=== PATIENT | female | born 1960 | race Caucasian/White ===

== ENCOUNTER 2020-07-27 18:25 | Emergency (ER) | payer OTHER, SELFPAY ==
[2020-07-27 18:27] VITALS: BP 135/92; PULSE 85; RESP 14; TEMP 35.6; O2SAT 100; BMI 33.0
--- NOTE | 2020-07-27 19:58 | EKG12_ITS ---
Test Reason : ABDOMINAL PAIN Blood Pressure : / mmHG Vent. Rate : 091 BPM Atrial Rate : 091 BPM P-R Int : 168 ms QRS Dur : 082 ms QT Int : 366 ms P-R-T Axes : 033 004 023 degrees QTc Int : 450 ms Normal sinus rhythm Normal ECG Confirmed by ANDREW DUBON, JAMES ([id number]), web content editor ONDINA GAMBINO ([id number]) on 07/30/2020 11:11:45 A M Referred By: SANDHYA Confirmed By:LINETTE MORALES MD
--- NOTE | 2020-07-27 19:58 | CT_ITS ---
STUDY: CT ABDOMEN AND PELVIS WITHOUT CONTRAST REASON FOR EXAM: Female, 60 years old. abd pain RADIATION DOSAGE (If Supplied By Facility): CTDIvol = ( 17.56 ) mGy, DLP = ( 978.44 ) mGycm TECHNIQUE: Transaxial images were obtained from the dome of the diaphragm to the symphysis pubis without oral contrast, and without intravenous contrast. Sagittal and coronal images were reconstructed. Individualized dose optimization techniques were used for this CT. COMPARISON: None. FINDINGS: The visualized lung bases are unremarkable. The visualized portions of the heart are within normal limits. Normal liver. Gallstones or sludge without gallbladder wall thickening or pericholecystic fluid. Normal spleen. Normal pancreas. Normal bilateral adrenal glands. Normal right kidney. Moderate left hydronephrosis and perinephric stranding. 2 x 3 mm stone at the ureteropelvic junction within the bladder. Sleeve gastrectomy. Normal small intestine. Normal colon. The appendix is visualized and appears normal. Normal abdominal aorta. Normal inferior vena cava. Normal retroperitoneum. Normal urinary bladder. Bilateral fat-containing inguinal hernias. Normal osseous structures. CT/Abdomen/Pelvis without Cont IMPRESSION: Moderate left hydronephrosis due to a 2 x 3 mm stone at the ureteropelvic junction in the bladder. Cholelithiasis. Electronically Signed: Elliott Mckeon MD at 21:05 EDT , Service support ,
--- NOTE | 2020-07-27 19:59 | ED.VIS.GI ---
HPI HPI - GI History of Present Illness Chief Complaint: Abd Pain Informant: patient Abdominal Pain/Flank Pain Onset: Today and Hours Context: Sudden Onset Timing: Continuous Quality: Cramping, Sharp and Stabbing Location: Diffuse Current Severity: Moderate Maximum Severity: Severe Nausea/Vomiting/Emesis GI Symptom: Positive for Nausea and Vomiting Onset: Today Quality: Positive for Nonbilious; Negative for Blood streaks, Coffee ground and Hematemesis Severity: Mild Diarrhea/Melena/Hematochezia GI Symptom: Negative for Diarrhea, Melena and Hematochezia Associated Symptoms Associated Symptoms: Negative for Dysuria and Frequency Narrative Narrative: 60-year-old female history of hysterectomy, C-sections and prior gastric sleeve. Said this morning she started having abdominal pain the left lower quadrant now is diffuse. Associated nausea and vomiting. No diarrhea no constipation. No melena no dysuria. No fever. Denies any abdominal trauma. States she is never had pain like this before. Denies any recent illness or hospitalization. Prior similar symptoms: No Recent Illness/Hospitalization: No PFSH PFSH Medical History (Updated 07/27/20 @ 21:[address] Tyron Moreira MD) Depression Hypothyroidism Kidney stone on left side Home Medications bupropion HCl [Wellbutrin XL] 300 mg PO DAILY 07/27/20 [History Last Taken Unknown] hydrocodone-acetaminophen 1 tab PO Q4H PRN 2 Days #10 tab 07/27/20 [Rx Last Taken Unknown] thyroid 1 tab PO.IVFORM DAILY 07/27/20 [History Last Taken Unknown] Allergy/AdvReac Type Severity Reaction Status Date / Time No Known Allergies Allergy Verified 07/27/20 18:26 Social History Smoking Status: Never smoker ROS ROS ED ROS Narrative Denies any recent illness before today. Review of Systems ROS Unobtainable: Denies due to encephalopathy Constitutional Constitutional ED: Denies chills or fever(s) ENT ENT ED: Denies ear pain or sore throat Cardiovascular Cardiovascular: Denies chest pain or palpitations Respiratory/Chest Respiratory/Chest: Denies cough or dyspnea Gastrointestinal Gastrointestinal: Reports abdominal pain, nausea and vomiting; Denies constipation, diarrhea or melena Genitourinary Genitourinary ED: Denies dysuria or hematuria Musculoskeletal Musculoskeletal: Denies myalgias Integumentary Denies rash Neurologic Neurologic: Denies headache(s) Psychiatric Psychiatric: Denies depression Endocrine Endocrinology: Denies polyuria Hematologic/Lymphatic Hematologic/Lymphatic: Denies easy bruising Allergic/Immunologic Allergic/Immunologic ED: Denies urticaria EXAM Physical Exam Narrative Exam Narrative: Middle-aged female crying in pain. Vital signs are stable afebrile. She does not look septic or toxic. She does not look dehydrated. HEENT exam unremarkable. Lungs are clear. Heart regular rhythm. Abdomen soft nontender nondistended normal bowel sounds no peritoneal signs. There is no reproducible abdominal pain. She states the pain is all over her entire abdomen. There is no signs of obstruction. Abdomen is soft with positive bowel sounds. There is no pulsatile mass. Moving all 4 extremities. No edema. Back nontender. Neurologically she is awake and alert. Const Vital Signs: 07/27/20 18:27 Temperature 96.1 F L Temperature Source Temporal Pulse Rate 85 Respiratory Rate 14 Blood Pressure 135/92 H Blood Pressure Mean 106 Pulse Ox 100 Oxygen Delivery Method Room Air Positive well nourished and well developed General Appearance ED: well developed HEENT normocephalic and atraumatic; Negative for trauma or tenderness Eyes PERRL and EOMs intact bilaterally Neck no lymphadenopathy, supple and no JVD General: Negative for tenderness Resp normal respiratory effort and clear to auscultation bilaterally Cardio regular rate, regular rhythm, S1 normal heart sound, S2 normal heart sound and no murmurs GI non-tender, non-distended and no masses Inspection: Negative for abdominal distention Auscultation: normoactive bowel sounds Palpation: soft; Negative for tender, guarding, rigid or rebound tenderness present Back/Spine no CVA tenderness Extremity full ROM General Extremety ED: Negative for edema or tenderness General Extremity: Negative for edema Neuro CN's II-XII intact bilaterally and moves all extremities Sensorium / Orientation: alert, oriented to person, oriented to place, oriented to time and orientation impaired Psych mental status grossly normal Skin Lesions: no lesions Rashes: no rashes MDM MDM MDM Narrative Medical decision making narrative: Patient with abdominal pain with a prior hysterectomy, C-sections of the gastric sleeve. On exam is not reproducible. She seems to be in severe pain however. CAT scan labs are being obtained. She will be treated with IV morphine and Zofran for nausea. IV fluids. Repeat exam at 8:39 PM patient looks like a new person. She is completely pain-free. Her abdomen is completely benign and there is no reproducible pain. Given her labs this may be secondary to a acute kidney stone. So I changed the CAT scan to flank study without contrast. Patient is currently resting comfortably and abdomen is benign. Left flank and abdominal pain secondary to acute ureteral calculi. Patient is pain-free. She will be discharged home with urine strainer and [place]. Strain urine. Return if worse. Follow-up with urology if needed. Lab Data Attestation: I reviewed the patient's lab results. Lab results narrative: CBC is elevated at 15.4. Hemoglobin 13. No bands. Electrolytes unremarkable gap of 8. Creatinine 1.37. Liver enzymes are normal. Lipase is 59. UA shows 25-50 red cells no white cells rare bacteria and no nitrates. There was [address] reveals a left UPJ 2 to 3 mm ureteral stone with hydronephrosis and hydroureter. This is consistent with patient's presentation and exam. Labs: Laboratory Results - last 24 hr 07/27/20 07/27/20 07/27/20 19:30 19:54 19:54 WBC 15.4 H RBC 4.61 Hgb 13.7 Hct 41.5 MCV 90.0 MCH 29.7 MCHC 33.0 RDW Std Deviation 39.5 RDW Coeff of [place] 11.9 Plt Count 242 MPV 9.3 Immature Gran % (Auto) 0.600 Neut % (Auto) 75.2 H Lymph % (Auto) 19.3 [place] % (Auto) 4.1 Eos % (Auto) 0.5 Baso % (Auto) 0.3 Absolute Neuts (auto) 11.6 H Absolute Lymphs (auto) 2.98 Nucleated RBC % 0 Sodium 136 Potassium 4.7 Chloride 103 Carbon Dioxide 25.0 Anion Gap 8 BUN 12 Creatinine 1.37 H Estim Creat Clear Calc 41.39 Est GFR (MDRD) Af Amer 51 L Est GFR (MDRD) Non-Af 42 L BUN/Creatinine Ratio 8.8 L Glucose 122 H Calcium 9.7 Total Bilirubin 0.80 AST 20 ALT 18 Alkaline Phosphatase 98 Total Protein 7.7 Albumin 4.1 Globulin 3.6 Albumin/Globulin Ratio 1.1 Lipase 59 L Urine Color Yellow Urine Clarity Clear Urine pH 8.0 Ur Specific [place] 1.010 Urine Protein Negative Urine Glucose (UA) Normal Urine Ketones 150 A* Urine Occult Blood 150 H Urine Nitrite Negative Urine Bilirubin Negative Urine Urobilinogen Normal Ur Leukocyte Esterase Negative Urine RBC 25-50 SEEN Urine WBC 0 SEEN Ur Squamous Epith Cells 0-5 SEEN Urine Bacteria RARE Urine Mucus 0 SEEN Radiography Diagnostic Testing: Radiology Impression Abdomen/Pelvis CT 07/27/20 19:58 IMPRESSION: Moderate left hydronephrosis due to a 2 x 3 mm stone at the ureteropelvic junction in the bladder. Cholelithiasis. Electronically Signed: Elliott Mckeon MD at 21:05 EDT , Service support , Discharge Plan Triage Chief Complaint: Abd Pain ED Provider: Tyron Moreira Dx/Rx/DC Orders Clinical Impression: Kidney stone on left side Instructions: ED Kidney Stone w/ Colic Prescriptions: New hydrocodone-acetaminophen 5-325 mg tablet 1 tab PO Q4H PRN (Reason: pain) 2 Days Qty: 10 RF: 0 No Action bupropion HCl [Wellbutrin XL] 300 mg Tablet Extended Release 24 Hr 300 mg PO DAILY RF: 0 thyroid 1 tab PO.IVFORM DAILY RF: 0 Referrals: NADYA VELASCO [Other] Asaf Beltrna MD [STAFF PHYSICIAN] - 3-5 Days if not improving Activity Restrictions/Additional Instructions: Motrin and Tylenol for pain. For more severe pain [place]. Plenty of fluids. Strain your urine for the past stone. You have a 2 to 3 mm stone that still by your bladder. Once he gets your bladder you feel much better. Disposition Disposition: Home, self care
[2020-07-27] MEDS: 0.9% Normal Saline 1,000 ML 1000 ML IV (20:09)
[2020-07-27] MEDS: Ondansetron 4 MG/2 ML Vial IV (20:09)
[2020-07-27] MEDS: morphine 8 MG/ML Syringe IV (20:10)
[2020-07-27 20:11] LABS: Mucous, Urine 0 SEEN /hpf (<or=2+); White Blood Cells 0 SEEN /hpf (0-5)
[2020-07-27 20:13] LABS: Absolute Lymphocyte Count 2.98 X10^3/uL (0.83-4.51); Absolute Neutrophil Count 11.6 X10^3/uL (2.0-7.7); Basophil# 0.05 X10^3/uL; Basophil% 0.3 % (0-1); Eosinophil# 0.08 X10^3/uL; Eosinophils% 0.5 % (0-5); Hematocrit 41.5 % (37-47); Hemoglobin 13.7 g/dL (12.0-15.0); Lymphocyte # 2.98 X10^3/ul (0.83-4.51); Lymphocyte % 19.3 % (19-41); Mean Corpuscular Hgb 29.7 pg (27.0-32.0); Mean Platelet Vol. 9.3 fl (6.2-12.0); Monocyte# 0.63 X10^3/uL; Monocyte% 4.1 % (0-10); NRBC Flagged by Analyzer 0 % (0-5); Neutrophil # 11.61 X10^3/uL (2.7-7.7); Neutrophil % 75.2 % (47-70); Platelet Count 242 K/mm3 (150-450); RBC Distribution Width CV 11.9 % (11.6-14.6); RBC Distribution Width SD 39.5 fl (35.1-43.9); Red Blood Count 4.61 M/mm3 (4.2-5.4); White Blood Count 15.4 K/mm3 (4.4-11.0)
[2020-07-27 20:13] LABS: Color, Urine Yellow (Yellow); Glucose, Dipstick Normal (Normal); Leukocyte Esterase-Dipstick Negative /ul (Negative); Nitrite-Dipstick Negative (Negative); Occult Blood-Urine 150 /ul (Negative); Protein-Dipstick Negative (Negative); Urine Bilirubin Dipstick Negative (Negative); Urine Clarity Clear (Clear); Urine Urobilinogen Normal (Normal)
[2020-07-27 20:31] LABS: Bacteria RARE /hpf (None Seen); Red Blood Cells-Urine 25-50 SEEN /hpf (0-5); Squamous Epithelial Cells - UA 0-5 SEEN /hpf (5-10)
[2020-07-27 20:34] LABS: ALB/GLOB Ratio 1.1 RATIO (0.9-2.4); AST(SGOT) 20 U/L (15-37); Alanine Aminotransfer ALT/SGPT 18 U/L (13-56); Albumin, Serum 4.1 g/dL (3.2-5.0); Alkaline Phosphatase 98 U/L (45-117); Anion Gap 8 (5-15); BUN 12 mg/dL (7-18); BUN/Creat Ratio 8.8 RATIO (10-20); Calcium,Total 9.7 mg/dL (8.5-10.1); Chloride 103 mmol/L (98-107); Creatinine, Serum 1.37 mg/dL (0.55-1.02); EST Glomerular Filtration Rate 42 mL/min (>60); Est Glom Filt Rate - Afr Amer 51 mL/min (>60); Estimated Creatinine Clearance 41.39 ml/min; Globulin 3.6 g/dL (2.2-4.2); Glucose 122 mg/dL (74-106); Lipase 59 U/L (73-393); Potassium 4.7 mmol/L (3.5-5.1); Protein, Total 7.7 g/dL (6.4-8.2); Sodium Level 136 mmol/L (136-145)
[2020-07-27 20:34] LABS: Ketone-Dipstick 150 mg/dl (Negative)
[2020-07-27 21:57] VITALS: BP 128/60; PULSE 79; RESP 18; O2SAT 96
== END 2020-07-27 21:58 | disposition home or self-care (01) ==
PROVIDERS: Emergency Provider Emergency Medicine
DX: N20.0 Calculus of kidney (principal); E03.9 Hypothyroidism, unspecified; F32.9 Major depressive disorder, single episode, unspecified; Z79.899 Other long term (current) drug therapy; Z98.84 Bariatric surgery status
CPT/HCPCS: 74176; 80053; 81001; 83690; 85025; 93005; 96361; 96374; 96375; 99282; J7030; A4216; J2405